=== PATIENT | male | born 1995 | race Caucasian/White ===

== ENCOUNTER 2017-04-22 18:04 | Emergency (ER) | payer SELFPAY ==
[~2017-04-22] VITALS: Ht 170.2 cm; Wt 66.3 kg
[2017-04-22 18:12] VITALS: BP 140/88
[2017-04-22] MEDS ORDERED: ACETAMINOPHEN 325 MG TAB ONE (18:26)
--- NOTE | 2017-04-22 19:35 | NUR ---
PATIENT TAKEN TO OVERFLOW CHAIR 1.
--- NOTE | 2017-04-22 19:35 | NUR ---
PT TAKEN TO OVERFLOW CHAIR 1.
--- NOTE | 2017-04-22 19:40 | NUR ---
CAME IN WITH C/O FEVER, COUGH FOR 2 DAYS.
[2017-04-22 19:48] VITALS: BP 128/81
--- NOTE | 2017-04-22 19:48 | NUR ---
Patient discharged with v/s stable. Written and verbal after care instructions given and explained. Patient alert, oriented and verbalized understanding of instructions. Ambulatory with steady gait. All questions addressed prior to discharge. ID band removed. Patient advised to follow up with PMD. Rx of AUGMENTIN 875MG given. Patient educated on indication of medication including possible reaction and side effects. Opportunity to ask questions provided and answered.
== END 2017-04-22 19:48 | disposition home or self-care (01) ==
LOC: MED 18:04
DX: J06.9 Acute upper respiratory infection, unspecified (principal)
CPT/HCPCS: 99283